=== PATIENT | female | born 2000 | race Native Hawaiian/Other Pacific Islander ===

== ENCOUNTER 2020-01-21 17:04 | Emergency (ER) | payer SELFPAY ==
[2020-01-21 17:12] VITALS: BP 114/82
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
[2020-01-21] MEDS ORDERED: oxyCODONE /ACETAMINOPHEN 5-325MG TAB PO ONE (19:27)
[2020-01-21] MEDS ORDERED: ONDANSETRON 4 MG ODT TAB PO ONE (19:27)
[2020-01-21] MEDS ORDERED: oxyCODONE /ACETAMINOPHEN 5-325MG TAB ONE (19:35)
[2020-01-21] MEDS ORDERED: ONDANSETRON 4 MG ODT TAB ONE (19:35)
== END 2020-01-21 20:25 | disposition home or self-care (01) ==
LOC: ED 17:04
DX: R07.89 Other chest pain (principal); M54.6 Pain in thoracic spine; Z79.899 Other long term (current) drug therapy; V49.49XA Driver injured in collision with other motor vehicles in traffic accident, initial encounter; Y93.89 Activity, other specified; Y92.488 Other paved roadways as the place of occurrence of the external cause; Y99.8 Other external cause status
CPT/HCPCS: 99282; Q0162